=== PATIENT | male | born 1955 | race Hispanic/Latino ===

== ENCOUNTER 2018-11-16 14:30 | Outpatient (CLI) | payer OTHER ==
--- NOTE | 2018-11-16 15:16 | ULT ---
BILATERAL RENAL ULTRASOUND: HISTORY: Chronic renal disease FINDINGS: The right kidney measures 11 cm in length and the left kidney measures 11.8 cm in length. No focal ma ss or hydronephrosis is seen on either side. Cortical echogenicity and thickness is normal. No shadowing calculi are identified. The bladder is not satisfactorily distended. The patient emptied his bladder prior to the exam. IMPRESSION: Normal renal sonogram.
== END 2018-11-16 14:31 | disposition home or self-care (01) ==
LOC: BICULT 14:30
PROVIDERS: ATTEND Internal Medicine Nephrology
DX: N18.3 Chronic kidney disease, stage 3 (moderate) (principal)
CPT/HCPCS: 76770